=== PATIENT | female | born 1960 | race African-American/Black ===

== ENCOUNTER 2025-03-30 16:17 | Emergency (ER) | payer BC, SELFPAY ==
[2025-03-30 16:28] VITALS: BP 184/74; PULSE 80; RESP 16; TEMP 36.7; O2SAT 100
--- NOTE | 2025-03-30 16:49 | ED.LOWEXIN ---
HPI - Extremity Injury (Lower) General Chief Complaint: Extremity Injury, Lower Stated Complaint: L THIGH PAIN Time Seen by Provider: 03/30/25 16:49 Source: patient Mode of arrival: ambulatory Limitations: no limitations History of Present Illness HPI Narrative: 65-year-old female presents with complaint of pain to left lateral thigh for 2-3 days. Denies injury. Painful with palpation and when ambulatory. No pain at rest. Patient states that left thigh feels warm and swollen. Patient concerned for blood cough. No history of blood clots. All systems reviewed and negative except as noted above. Related Data Allergies Allergy/AdvReac Type Severity Reaction Status Date / Time No Known Allergies Allergy Verified 08/16/24 15:14 Review of Systems Review of Systems: CONSTITUTIONAL: Denies fever, chills, or sweats. EYES: Denies visual changes, redness, or discharge. ENT: Denies rhinorrhea, congestion, sore throat, or otalgia. CARDIOVASCULAR: Denies chest pain, palpitations, or edema. RESPIRATORY: Denies cough or dyspnea. GASTROINTESTINAL: Denies abdominal pain, nausea, vomiting, or diarrhea. GENITOURINARY: Denies dysuria or hematuria. SKIN: Denies rash or itching. MUSCULOSKELETAL: Denies back pain, joint pain, or myalgia. Reports pain to left lateral thigh. NEUROLOGIC: Denies headache, numbness, or weakness. PSYCHIATRIC: Denies anxiety or depression. All other systems reviewed are negative, except as documented in HPI. [facility] Family History Family History Mother Family history of diabetes mellitus in first degree relative Hypertension Social History Social History Smoking status: Never smoker Second hand tobacco smoke exposure: No Alcohol intake: never Substance use: never Do You Feel Safe in your Home?: Yes Lack of Transportation: No Lack of Food: Never True Current Housing: I Have Housing Concerned About Future Housing: No Difficulty Paying Gas/Electric Bills: No Difficulty Paying for Meds: No Currently Unemployed: No Education: Bachelor's Degree Difficulty w/ Childcare or Family Care: No Comments At time of signature, agree with nursing past medical, surgical, social and family history. There is no relevant family history pertinent to the presenting complaint. Exam Narrative: GENERAL: This is a well-nourished, well-developed patient, in no apparent distress. HEAD: normocephalic, atraumatic. EYES: PERRL. Sclera clear/white. Vision is grossly intact. EARS: External ears normal NOSE: External nose normal NECK: Neck supple, non-tender without lymphadenopathy, masses or thyromegaly. CARDIOVASCULAR: Regular rate and rhythm without murmurs, gallops, or rubs. RESPIRATORY: Clear to auscultation. Breath sounds equal bilaterally. No wheezes, rales, or rhonchi. SKIN: warm, Dry, intact with no suspicious lesions or rash, good texture and turgor. NEURO: awake, alert, and oriented to person, place and time. There were no obvious focal neurologic abnormalities. EXTREMITIES: No joint tenderness, effusion, or edema noted. No calf tenderness. Negative Homans sign bilaterally. L and R thigh measuring 72 cm. tenderness to latearal aspect of L thigh on palpation without swelling, erythema or warmth. Course Course Level of Care: Express Care Visit Vital Signs Vital signs: Vital Signs Temperature 36.7 C 03/30/25 16:28 Pulse Rate 80 03/30/25 16:28 Respiratory Rate 16 03/30/25 16:28 Blood Pressure 184/74 H 03/30/25 16:28 Pulse Oximetry 100 03/30/25 16:28 Temperature 36.7 C 03/30/25 16:28 Pulse Rate 80 03/30/25 16:28 Respiratory Rate 16 03/30/25 16:28 Blood Pressure 184/74 H 03/30/25 16:28 Pulse Oximetry 100 03/30/25 16:28 Reviewed MDM - Extremity Injury (Lower) MDM Narrative Medical decision making narrative: Recommend [id number] Tylenol to treat musculoskeletal pain. Patient has no swelling, erythema, warmth to left thigh. She has localized tenderness to lateral aspect on palpation. Also experiencing pain when ambulatory but at rest has no pain. Discussed signs of a DVT. Will go to the ER for any worsening of symptoms. Please be advised this is a medical document. It is intended for [id number] communication. It is written in medical language and may contain unfamiliar abbreviations or verbiage. Medical documents are intended to carry relevant information, facts as evident, and the clinical opinion of the practitioner at the time of the encounter. This report may have been done utilizing a voice recognition system. Attempts have been made to correct errors. However, there may be uncorrected grammatical, spelling, and recognition errors present. The file time of this note does not necessarily represent the time of service. Discharge Plan Discharge Clinical Impression: Musculoskeletal pain of left thigh, Elevated blood pressure reading Patient Disposition: Home Condition: Stable Instructions: Leg Pain (ED) Additional Instructions: Take Tylenol every 6-8 hours as needed for pain. Alternate between ice and heat. Do stretching exercises as tolerated. Your blood pressure was elevated today. Follow-up with your primary care physician in 1 week to recheck your blood pressure and further discuss left leg pain. If you have severe pain to your left leg, swelling go to the ER. Patient Language: Faroese Prescriptions: No Action pravastatin 40 mg tablet 40 mg PO QHS Qty: 90 1RF nitroglycerin 0.4 % (w/w) ointment 1 inch RECTAL BID Qty: 30 0RF lisinopril 20 mg tablet 20 mg PO DAILY Qty: 90 0RF Ozempic 1 mg/dose (4 mg/3 mL) pen injector See Rx Instructions .ROUTE .COMPLEX Qty: 3 4RF Dose Instruction: ADMINISTER 1 MG UNDER THE SKIN WEEKLY Rx Instructions: ADMINISTER 1 MG UNDER THE SKIN WEEKLY pantoprazole 40 mg tablet,delayed release (DR/EC) 40 mg PO QAM Qty: 90 1RF metformin 1,000 mg tablet 1,000 mg PO BID Qty: 180 0RF Follow-up/Referrals: PHYSICIAN,MANAGER EXPORT [Primary Care Provider] - Time of Disposition: 17:03
== END 2025-03-30 17:09 | disposition home or self-care (01) ==
PROVIDERS: Emergency Provider Nurse Practitioner Family
DX: M79.652 Pain in left thigh (principal); I10 Essential (primary) hypertension; E11.9 Type 2 diabetes mellitus without complications; Z79.85 Long-term (current) use of injectable non-insulin antidiabetic drugs; Z79.84 Long term (current) use of oral hypoglycemic drugs
CPT/HCPCS: 99211; G0463